=== PATIENT | male | born 1995 | race Caucasian/White ===

== ENCOUNTER 2017-06-26 21:58 | Emergency (ER) | END 2017-06-27 02:09 | disposition home or self-care (01) | DX: R10.32 Left lower quadrant pain (principal); K40.20 Bilateral inguinal hernia, without obstruction or gangrene, not specified as recurrent | CPT/HCPCS: 36415; 74177; 80053; 81003; 83690; 85025; J2405; J7030; Q9967; Z7502; Z7610 ==